=== PATIENT | female | born 1990 | race Caucasian/White ===

== ENCOUNTER 2022-04-06 09:10 | Inpatient (IN) | payer BC ==
[~2022-04-06] VITALS: Ht 162.6 cm; Wt 79.8 kg
[2022-04-06] MEDS: OXYTOCIN 20 UNITS in LACTATED RINGERS 1,000 ML IV SCH (08:12)
--- NOTE | 2022-04-06 09:47 | NUR ---
PATIENT HAS BEEN SCREENED AND CATEGORIZED LOW NUTRITION RISK. PATIENT WILL BE SEEN WITHIN 7 DAYS OF ADMISSION. 04/13/22 REVIEWED BY SAVANNAH [address]
[2022-04-06 10:04] LABS: BASOPHILS # (AUTO) 0.2 K/uL (0.00-0.22); BASOPHILS % (AUTO) 1.4 % (0.0-2.0); EOSINOPHILS # (AUTO) 0.2 K/uL (0-0.4); EOSINOPHILS % (AUTO) 1.7 % (0.0-4.0); HEMOGLOBIN 11.3 g/dL (12.0-16.0); LYMPHOCYTES # (AUTO) 2.3 K/uL (2.5-16.5); LYMPHOCYTES % (AUTO) 21.3 % (20.5-51.1); MEAN CORPUSCULAR HEMOGLOBIN 31 pg (27-31); MEAN CORPUSCULAR HGB CONC 35 g/dL (33-37); MEAN CORPUSCULAR VOLUME 87.1 fL (80-94); MONOCYTES # (AUTO) 0.8 K/uL (0.8-1.0); MONOCYTES % (AUTO) 7.3 % (1.7-9.3); NEUTROPHILS # (AUTO) 7.4 K/uL (1.8-7.7); NEUTROPHILS % (AUTO) 68.3 % (42.2-75.2); PLATELET COUNT (AUTO) 281 K/uL (140-450); RED BLOOD CELL COUNT(AUTO) 3.67 MIL/uL (4.20-5.40); RED CELL DISTRIBUTION WIDTH 13.4 % (11.6-13.7); WHITE BLOOD COUNT (AUTO) 10.8 K/uL (4.8-10.8)
[2022-04-06] MEDS ORDERED: CITRIC ACID/SODIUM CITRATE 30 ML UDC PO ONE (10:15)
[2022-04-06] MEDS ORDERED: LACTATED RINGERS 1,000 ML IV SCH (10:15)
[2022-04-06] MEDS ORDERED: METHYLERGONOVINE 0.2 MG/ML AMP IM PRN ×2 (10:15→12:50)
[2022-04-06 10:41] LABS: ANION GAP 14.3 (8-16); CREATININE 0.8 mg/dL (0.6-1.3); POTASSIUM 4.3 mmol/L (3.5-5.1); TOTAL BILIRUBIN 0.3 mg/dL (0.0-1.0)
[2022-04-06] MEDS ORDERED: ceFAZolin 2,000 MG VIAL ONE ×2 (11:23→12:00)
[2022-04-06] MEDS ORDERED: OXYTOCIN 10 UNITS/ML VIAL ONE (12:00)
[2022-04-06] MEDS ORDERED: ePHEDrine 50 MG/ML VIAL ONE (12:00)
[2022-04-06] MEDS ORDERED: MORPHINE PRES FREE 10 MG/10 ML AMP IV ONE (12:33)
[2022-04-06] MEDS ORDERED: TEMAZEPAM 15 MG CAP PO PRN (12:50)
[2022-04-06] MEDS ORDERED: oxyCODONE/APAP 5/325 MG 1 TAB TAB PO PRN (12:50)
[2022-04-06] MEDS ORDERED: OXYTOCIN 20 UNITS/LR PREMIX 1,000 ML IV ONE ×2 (14:08→22:49)
[2022-04-06 14:27] LABS: APPEARANCE,URINE CLEAR (CLEAR); BILIRUBIN,URINE NEGATIVE (NEGATIVE); BLOOD, URINE 2+ (NEGATIVE); COLOR,URINE YELLOW (YELLOW); LEUKOCYTE ESTERASE ,URINE NEGATIVE (NEGATIVE); NITRITE, URINE NEGATIVE (NEGATIVE); UGLUCOSE NEGATIVE (NEGATIVE)
[2022-04-06] MEDS ORDERED: METOCLOPRAMIDE 10 MG/2 ML INJ VIAL IVP PRN (14:29)
[2022-04-06] MEDS ORDERED: NALOXONE 0.4 MG/ML VIAL IVP PRN ×3 (14:30)
[2022-04-06] MEDS ORDERED: ONDANSETRON 4 MG/2 ML VIAL IVP PRN (14:30)
[2022-04-06] MEDS ORDERED: NALBUPHINE 10 MG/ML AMP IVP PRN (14:30)
[2022-04-06] MEDS ORDERED: diphenhydrAMINE 50 MG/ML VIAL IVP PRN (14:30)
[2022-04-06 14:53] LABS: RBC,URINE 20-50 /HPF (0-5); WBC,URINE 0-5 /HPF (0-5)
[2022-04-06] MEDS: KETOROLAC 30 MG/ML VIAL IVP PRN ×2 (18:14→18:20)
[2022-04-06] MEDS: KETOROLAC 30 MG/ML VIAL IM/IVP SCH (18:21)
[2022-04-06] MEDS: DOCUSATE SOD/SENNA 50/8.6 MG 1 TAB PO SCH (21:00)
[2022-04-07] MEDS: OXYTOCIN 20 UNITS in LACTATED RINGERS 1,000 ML IV SCH ×2
[2022-04-07] MEDS: KETOROLAC 30 MG/ML VIAL IM/IVP SCH ×2 (00:01→06:00)
[2022-04-07] MEDS ORDERED: OXYTOCIN 20 UNITS/LR PREMIX 1,000 ML IV ONE (07:15)
[2022-04-07] MEDS: SIMETHICONE 80 MG TAB.CHEW PO PRN ×2 (08:10→14:09)
[2022-04-07 08:33] LABS: BASOPHILS % (AUTO) 0.3 % (0.0-2.0); EOSINOPHILS # (AUTO) 0.2 K/uL (0-0.4); EOSINOPHILS % (AUTO) 1.2 % (0.0-4.0); HEMATOCRIT 27.2 % (36-48); HEMOGLOBIN 9.4 g/dL (12.0-16.0); LYMPHOCYTES # (AUTO) 1.8 K/uL (2.5-16.5); LYMPHOCYTES % (AUTO) 13.6 % (20.5-51.1); MEAN CORPUSCULAR HEMOGLOBIN 31 pg (27-31); MEAN CORPUSCULAR HGB CONC 35 g/dL (33-37); MEAN CORPUSCULAR VOLUME 87.9 fL (80-94); MONOCYTES # (AUTO) 1.1 K/uL (0.8-1.0); MONOCYTES % (AUTO) 8.6 % (1.7-9.3); NEUTROPHILS # (AUTO) 10.1 K/uL (1.8-7.7); NEUTROPHILS % (AUTO) 76.3 % (42.2-75.2); PLATELET COUNT (AUTO) 214 K/uL (140-450); RED BLOOD CELL COUNT(AUTO) 3.09 MIL/uL (4.20-5.40); RED CELL DISTRIBUTION WIDTH 13.4 % (11.6-13.7); WHITE BLOOD COUNT (AUTO) 13.3 K/uL (4.8-10.8)
[2022-04-07] MEDS: oxyCODONE/APAP 5/325 MG 1 TAB TAB PO PRN (14:09)
[2022-04-07] MEDS ORDERED: CAMERA MC ONE (19:16)
[2022-04-07] MEDS: IBUPROFEN 800 MG TAB PO PRN (19:40)
[2022-04-07] MEDS: DOCUSATE SOD/SENNA 50/8.6 MG 1 TAB PO SCH (21:01)
[2022-04-08] MEDS: oxyCODONE/APAP 5/325 MG 1 TAB TAB PO PRN ×2 (02:10→22:25)
[2022-04-08] MEDS: SIMETHICONE 80 MG TAB.CHEW PO PRN ×2 (09:18→12:41)
[2022-04-08] MEDS: IBUPROFEN 800 MG TAB PO PRN ×2 (09:19→21:03)
[2022-04-08] MEDS ORDERED: CAMERA MC ONE (19:24)
[2022-04-08] MEDS: DOCUSATE SOD/SENNA 50/8.6 MG 1 TAB PO SCH (21:03)
[2022-04-09] MEDS: oxyCODONE/APAP 5/325 MG 1 TAB TAB PO PRN ×2 (05:07→09:08)
== END 2022-04-09 15:28 | disposition home or self-care (01) | DRG 788 ==
LOC: MLD 09:10 → OBSVTOIN 10:12 → MFCC 14:35
PROVIDERS: ADMIT Obstetrics & Gynecology; ATTEND Obstetrics & Gynecology
PROC: 10D00Z1 Extraction of Products of Conception, Low, Open Approach (ICD-10-PCS; principal; 2022-04-06 12:30)
DX: O32.1XX0 Maternal care for breech presentation, not applicable or unspecified (principal); Z3A.39 39 weeks gestation of pregnancy; Z37.0 Single live birth
CPT/HCPCS: 36415; 76815; 80053; 81001; 85025; 85610; 85730; 86592; 86886; 86900; 86901; 90715; J0690; J1885; J2270; J2590; J7060; J7120; Q0092